=== PATIENT | female | born 1960 | race Caucasian/White ===

== ENCOUNTER → 2021-03-28 | Outpatient (CLI) | payer MEDICARE, MEDICAID ==
--- NOTE | 2021-03-28 16:31 | Diagnostic Imaging Report ---
INDICATION: Left ureteral stone COMPARISON: None available TECHNIQUE: Single radiograph of the abdomen dated 03/28/2021. FINDINGS: Postsurgical changes are noted involving the lumbosacral spine. Chain suture is present overlying the left upper abdomen, right mid abdomen, and midline pelvis. Innumerable surgical clips are seen overlying the abdomen and pelvis bilaterally, left greater than right. Gas and stool throughout the colon. No dilated loops of small bowel. No suspicious calcifications overlying the expected location of the renal shadows. [place] left curvature of the lumbar spine. Scattered osseous degenerative changes without acute osseous abnormality. IMPRESSION: Extensive postsurgical changes without evidence of bowel obstruction or free air. Should there remains clinical concern for renal or ureteral calculi, a CT or ultrasound should be considered. Evaluation for calculi is limited on this examination secondary to overlying enteric contents and extensive postsurgical changes. Dictated by: Dictated on workstation # [id number]
== END ==
LOC: RAD 12:52
PROVIDERS: ATTEND Urology
DX: N20.1 Calculus of ureter (principal); Z98.890 Other specified postprocedural states
CPT/HCPCS: 74018